=== PATIENT | female | born 1990 | race Caucasian/White ===

== ENCOUNTER 2018-09-20 22:01 | Emergency (ER) | payer MEDICAID ==
[~2018-09-20] VITALS: Ht 152.4 cm; Wt 84.1 kg
[2018-09-20 22:04] VITALS: Ht 152.4 cm; Wt 84.1 kg
[2018-09-20] MEDS ORDERED: FLAGYL500 MG PO (22:06)
[2018-09-20 23:03] LABS: BASOPHILS 0.1 % (0-2); EOSINOPHILS 0.7 % (0-7); HEMATOCRIT 36.3 % (36.0-48.0); HEMOGLOBIN 11.6 g/dL (12-16); IMMATURE GRANULOCYTES 0.2 % (0-5); LYMPHOCYTES 34.7 % (15-50); MCH 25.2 pg (26.0-34.0); MCV 78.7 fL (80.0-100.0); MONOCYTES 6.7 % (2-11); NEUTROPHILS 57.6 % (40-80); PLATELET COUNT 255 10x3/uL (130-400); RBC 4.61 10x6/uL (4.00-5.40); RDW 14.6 % (11.5-14.5); WBC 8.1 10x3/uL (4.8-10.8)
[2018-09-20 23:17] LABS: ALBUMIN 3.7 g/dL (3.4-5.0); ALKALINE PHOSPHATASE 54 U/L (46-116); ALT (SGPT) 24 U/L (10-68); BILIRUBIN - TOTAL 0.19 mg/dL (0.2-1.3); CALC OSMOLALITY 276 mosm/kg (275-300); CALCIUM 8.6 mg/dL (8.5-10.1); CARBON DIOXIDE 23.5 mmol/L (21.0-32.0); CHLORIDE - SERUM 106 mmol/L (98-107); CREATININE - SERUM 0.8 mg/dL (0.6-1.3); GLUCOSE 93 mg/dL (74-106); POTASSIUM - SERUM 3.6 mmol/L (3.5-5.1); PROTEIN - SERUM 7.5 g/dL (6.4-8.2); SODIUM 140 mmol/L (136-145); UREA NITROGEN 8 mg/dL (7-18); eGFR NON AFRICAN AMERICAN 90 mL/min (90-120)
[2018-09-20 23:19] LABS: HCG SERUM NEGATIVE (NEGATIVE)
[2018-09-20 23:26] LABS: APPEARANCE HAZY (CLEAR); BILIRUBIN NEGATIVE (NEGATIVE); COLOR YELLOW (YELLOW); GLUCOSE NEGATIVE (NEGATIVE); KETONE NEGATIVE (NEGATIVE); NITRITE NEGATIVE (NEGATIVE); PROTEIN NEGATIVE (NEGATIVE); UROBILINOGEN NORMAL (NORMAL)
[2018-09-20 23:32] LABS: BACTERIA FEW /hpf (NONE SEEN); EPITHELIAL CELLS 0-5 /hpf (0-5); RED CELLS - URINE RARE /hpf (0-5); WHITE CELLS - URINE OCC /hpf (0-5)
[2018-09-21 01:41] VITALS: BP 125/63
== END 2018-09-21 01:42 | disposition home or self-care (01) ==
LOC: D.ER 22:01
PROVIDERS: Family Medicine
DX: N83.202 Unspecified ovarian cyst, left side (principal); D25.9 Leiomyoma of uterus, unspecified

== ENCOUNTER 2018-12-07 15:12 | Emergency (ER) | payer MEDICAID ==
[~2018-12-07] VITALS: Ht 152.4 cm; Wt 79.1 kg
[~2018-12-07 15:12] MED LIST: FLAGYL500 MG PO
[2018-12-07 15:15] VITALS: Ht 152.4 cm; Wt 79.1 kg
[2018-12-07] MEDS ORDERED: VIBRAMYCIN 100100 MG PO (16:20)
[2018-12-07 17:00] VITALS: BP 128/83
== END 2018-12-07 16:45 | disposition home or self-care (01) ==
LOC: D.ER 15:12
DX: R05 Cough (principal)